=== PATIENT | male | born 1980 | race Caucasian/White ===

== ENCOUNTER 2019-04-10 10:11 | Emergency (ER) | payer MEDICAID ==
[~2019-04-10] VITALS: Ht 180.3 cm; Wt 81.8 kg
[2019-04-10 10:13] VITALS: Ht 180.3 cm; Wt 81.8 kg
[2019-04-10 10:51] LABS: BASOPHILS 0.1 % (0-2); EOSINOPHILS 3.2 % (0-7); HEMATOCRIT 45.8 % (42.0-54.0); HEMOGLOBIN 15.7 g/dL (13.5-17.5); IMMATURE GRANULOCYTES 0.3 % (0-5); LYMPHOCYTES 27.1 % (15-50); MCH 33.3 pg (26.0-34.0); MCHC 34.3 g/dL (31.0-37.0); MCV 97.2 fL (80.0-100.0); MEAN PLATELET VOLUME 9.8 fL (7.4-10.4); NEUTROPHILS 61.3 % (40-80); PLATELET COUNT 177 10x3/uL (130-400); RBC 4.71 10x6/uL (4.20-6.10); RDW 13.4 % (11.5-14.5); WBC 7.6 10x3/uL (4.8-10.8)
[2019-04-10 10:57] LABS: CALC OSMOLALITY 280 mosm/kg (275-300); CALCIUM 8.8 mg/dL (8.5-10.1); CARBON DIOXIDE 28.1 mmol/L (21.0-32.0); CHLORIDE - SERUM 105 mmol/L (98-107); CREATININE - SERUM 0.9 mg/dL (0.6-1.3); GLUCOSE 118 mg/dL (74-106); POTASSIUM - SERUM 4.3 mmol/L (3.5-5.1); SODIUM 141 mmol/L (136-145); UREA NITROGEN 10 mg/dL (7-18); eGFR NON AFRICAN AMERICAN > 90 mL/min (90-120)
[2019-04-10 11:10] LABS: ALBUMIN 3.7 g/dL (3.4-5.0); ALKALINE PHOSPHATASE 86 U/L (30-120); ALT (SGPT) 447 U/L (10-68); BILIRUBIN - TOTAL 0.52 mg/dL (0.2-1.3); CKMB 2.5 U/L (0.0-3.6); CREATINE KINASE 151 UL (21-232); MAGNESIUM - SERUM 1.6 mg/dL (1.8-2.4); PROTEIN - SERUM 7.7 g/dL (6.4-8.2)
[2019-04-10 11:11] LABS: TROPONIN-I < 0.017 ng/mL (0.000-0.060)
[2019-04-10 11:25] LABS: AMYLASE - SERUM 93 U/L (25-115); LIPASE 128 U/L (73-393)
[2019-04-10 11:39] LABS: APTT 28.4 SECONDS (22.8-39.4); INR 0.93 (0.85-1.17); PROTIME 12.5 SECONDS (11.6-15.0)
[2019-04-10] MEDS ORDERED: OMEPRAZOLE40 MG PO (12:09)
[2019-04-10 12:33] VITALS: BP 127/85
== END 2019-04-10 12:34 | disposition home or self-care (01) ==
LOC: D.ER 10:11
PROVIDERS: Family Medicine
DX: K21.9 Gastro-esophageal reflux disease without esophagitis (principal); R74.8 Abnormal levels of other serum enzymes; F17.210 Nicotine dependence, cigarettes, uncomplicated